=== PATIENT | female | born 1960 | race Caucasian/White ===

== ENCOUNTER → 2017-10-30 | Outpatient (CLI) | payer OTHER ==
[~2017-10-30] MED LIST: FLEXERIL PO; HYDROCODON-ACE1 EACH PO; IBUPROFEN 800800 M1 PO; LIDODERM 5%1 PATCH TOP; LIPITOR40 MG PO; NORCO 5-325 TA1 EACH PO; RELAFEN750 MG PO; ROBAXIN 750 MG750 M1 PO; VIVELLE-DOT1 EAC1 TD
--- NOTE | 2017-11-01 09:35 | PAINCON ---
[address] [address] PAIN MANAGEMENT CONSULTATION Name: SHERRY DUNNE Room: [facility]#: [id number] Admission: 10/30/17 Attend Phys: Stanton Mallory Discharge: Date of : 56 Report #: [id number] THIS REPORT FOR: //name// CC: Ramandeep Wilson PAIN CLINIC NOTE The patient is a pleasant 57-year-old female, prior seen for symptomatic lumbar radiculopathy, given a single epidural injection in May with 80%-90% improvement of baseline pain for many months. Pain gradually began to recur, currently in the low back, posterior thigh, lateral calf to the foot. She denies bowel or bladder continence, changes, saddle anesthesia. PHYSICAL EXAMINATION: Shows slight decreased left leg strength about 3/5 to all muscle groups tested, 4/5 on the right. She does have positive straight leg raise on the left at about 30 degrees. Patellar reflex is diminished compared to the right. Gait is modestly antalgic. Blood pressure is 140/46, pulse 79, respirations 16. BMI is 25.9 kilograms per meter squared. Subjective pain score is 8 on a VAS. The patient is taking appropriate medications including oxycodone, nabumetone, methocarbamol from her primary treating physician, Dr. Ramandeep Mesa. DIAGNOSTIC STUDIES: Reviewed including MRI from 01/21/2017 noting multilevel degenerative disk changes most severe at L1-L2 through L3-L4. L4 does note moderate stenosis with neural foraminal narrowing bilaterally, more marked on the right, compatible with current symptoms. ASSESSMENT: Symptomatic lumbar radiculopathy. RECOMMENDATIONS: Lumbar epidural injection under fluoroscopy at L3-L4 right in the midline and follow up in 4 weeks for reevaluation. Cancel if doing well. PROCEDURE: Lumbar epidural injection under fluoroscopy. PROCEDURE NOTE: After both written and informed consent to include risk of spinal cord damage, increased pain, weakness and dural puncture, the patient was taken to the fluoroscopy suite, placed in the prone position. After sterile prep and drape, a skin wheal with lidocaine was raised. A 22-gauge epidural Tuohy needle was inserted in the midline at L3-L4 with good loss to resistance. Negative aspiration for cerebrospinal fluid or blood was noted. Then 1 mL of Omnipaque under biplanar fluoroscopy showed good spread within the epidural space. This was followed with 80 mg of triamcinolone plus 1 mL of 1.5% preservative-free Xylocaine, 0.5 mL Xylocaine [place] [address] PAIN MANAGEMENT CONSULTATION Name: SHERRY DUNNE Room: [facility]#: [id number] Admission: 10/30/17 Attend Phys: Stanton Mallory Discharge: Date of : 56 Report #: [id number] needle; it was removed. The patient was monitored for an appropriate period of time and discharged in good and stable condition. <ELECTRONICALLY SIGNED> By: Dequan Wilson DO 11/01/17 0935 [id number] Wilson DO /nt
== END | disposition home or self-care (01) ==
LOC: M.PC 03:35
DX: M54.16 Radiculopathy, lumbar region (principal); Z98.890 Other specified postprocedural states; Z79.891 Long term (current) use of opiate analgesic; Z88.6 Allergy status to analgesic agent; Z91.041 Radiographic dye allergy status; Z79.899 Other long term (current) drug therapy

== ENCOUNTER → 2017-11-20 | Outpatient (CLI) | payer OTHER ==
--- NOTE | 2017-11-22 08:15 | PAINCON ---
[facility] [address] [place] [address] PAIN MANAGEMENT CONSULTATION Name: SHERRY DUNNE Room: [facility]#: [id number] Admission: 11/20/17 Attend Phys: Stanton Mallory Discharge: Date of : 56 Report #: [id number] THIS REPORT FOR: //name// CC: Ramandeep Wilson The patient is a 57-year-old female being treated for symptomatic lumbar radiculopathy. She has had lumbar epidural injections with good efficacy, though injection in October was not "very useful." She states pain in the left hip and leg, which exacerbates to the point that she has difficulty with movements. States she "gets stuck." She states pain is severe at times. More active over the holidays and was curious if increased physical activity at the last injection is why she did not get the usual relief. Continue to take Percocet rarely, has a prescription for 01/2017 she has been using. Hydrocodone in the past has been a little more helpful. Does take methocarbamol 750 up to 3 times a day and nabumetone 750 b.i.d. PHYSICAL EXAMINATION: Shows 5-foot 4-inch, 153-pound female, BMI is 26.3 kilograms per meter squared. Blood pressure 134/60, pulse 76, respirations 16. Rises from chair using armrest. Diffuse axial back pain. Antalgic gait, slight objective weakness in the left leg. Positive straight leg raise on the left. ASSESSMENT: Symptomatic lumbar radiculopathy, clinical exam and history. RECOMMENDATIONS: We will seek authorization for repeat epidural steroid injection under fluoroscopy; however, we will also seek referral to Neurosurgery for possible decompressive laminectomy. Reviewing MRI, there is no dramatic pathology, but symptoms remain quite problematic and they are interfering with function. Again, she seems to be losing efficacy and prior epidural injections have given her excellent relief, last injection was nominal relief. We may consider 1 more injection if this does not afford relief. Again, strongly recommend referral to Neurosurgery. The patient was given contact information for back surgeons at [facility], which is geographically desirable for the patient. We will renew hydrocodone 5/325 today, limit 60 tablets, 1 tablet q.4-6h. as needed for pain. Again, seek authorization for epidural injection under fluoroscopy at next visit. <ELECTRONICALLY SIGNED> By: Dequan Wilson DO 11/22/17 0815 [id number] Wilson DO /nt
== END ==
LOC: M.PC 02:06
DX: M54.16 Radiculopathy, lumbar region (principal)

== ENCOUNTER → 2019-05-20 | Outpatient (CLI) | payer OTHER | LOC: M.RAD 13:00 → M.ULTRA 05-22 14:30 | DX: Z12.31 Encounter for screening mammogram for malignant neoplasm of breast (principal); I65.21 Occlusion and stenosis of right carotid artery; I65.22 Occlusion and stenosis of left carotid artery; E78.5 Hyperlipidemia, unspecified; F17.200 Nicotine dependence, unspecified, uncomplicated ==